=== PATIENT | male | born 1995 | race Caucasian/White ===

== ENCOUNTER 2020-07-14 15:03 | Outpatient (CLI) | payer BC, SELFPAY ==
--- NOTE | ~2020-07-14 | US_ITS ---
EXAMINATION: US soft tissue head and neck DATE: 07/14/2020 15:40 INDICATION: Enlarged neck lymph nodes, unspecified. TECHNIQUE: Multiple grayscale and Doppler ultrasound images of the neck were obtained. COMPARISON: None FINDINGS: There are normal bilateral submandibular lymph nodes in the patient's areas of concern. IMPRESSION: 1. No abnormal mass or lymphadenopathy in the patient's areas of concern. Reviewed, dictated and finalized at location A. ER TENDER
== END 2020-07-14 15:04 | disposition home or self-care (01) ==
PROVIDERS: PCP Internal Medicine; Visit Provider Nurse Practitioner
DX: R59.9 Enlarged lymph nodes, unspecified (principal)
CPT/HCPCS: 76536

== ENCOUNTER → 2021-04-18 01:21 | Outpatient (CLI) | payer BC, SELFPAY ==
[2021-04-18 12:26] LABS: Influenza Control Positive
[2021-04-18 20:10] LABS: SARS-CoV-2 RNA PCR Negative
== END ==
PROVIDERS: PCP Internal Medicine; Visit Provider Internal Medicine
DX: R68.89 Other general symptoms and signs (principal); Z20.822 Contact with and (suspected) exposure to COVID-19
CPT/HCPCS: 87804; C9803; U0003; U0005

== ENCOUNTER 2022-07-29 03:02 | Emergency (ER) | payer BC, SELFPAY ==
--- NOTE | ~2022-07-29 | XR_ITS ---
Clinical Indication: Pain PA and lateral views of the chest: Comparison: None Findings: The lungs are clear, without evidence of focal consolidation or pleural effusion. Cardiome diastinal silhouette is within normal limits. Bones and soft tissues are unremarkable. Impression: Normal chest. Reviewed, dictated and finalized at location . Impression: Normal chest.
[2022-07-29 03:09] VITALS: BP 177/105; PULSE 90; RESP 18; TEMP 36.6; O2SAT 100
--- NOTE | 2022-07-29 03:24 | ED.ABDPAIN ---
HPI - Abdominal Pain General Chief Complaint: Abdominal Pain Stated Complaint: epigastric pain started last night Time Seen by Provider: 07/29/22 03:13 History of Present Illness HPI narrative: This is a 26-year-old male, who denies significant past medical history, presenting to the emergency department complaining of epigastric abdominal pain beginning approximately 5 and half hours ago. The patient states he ate chicken strips and few hours later noticed sharp and burning epigastric pain. The pain does not radiate, it is rated 6/10. He denies nausea, vomiting, diarrhea or bleeding from any source. Related Data Home Medications Medication Instructions Recorded Confirmed albuterol sulfate 90 mcg/actuation 1 puff inhalation Q4H PRN 04/25/19 07/21/20 aerosol inhaler (ProAir HFA) Allergies Allergy/AdvReac Type Severity Reaction Status Date / Time cefaclor Allergy Mild Rash Verified 07/21/20 14:38 Review of Systems Review of Systems: CONSTITUTIONAL: Denies fever, chills, or sweats. EYES: Denies visual changes, redness, or discharge. ENT: Denies rhinorrhea, congestion, sore throat, or otalgia. CARDIOVASCULAR: Denies chest pain, palpitations, or edema. RESPIRATORY: Denies cough or dyspnea. GASTROINTESTINAL: Epigastric abdominal pain and burning denies nausea, vomiting, or diarrhea. GENITOURINARY: Denies dysuria or hematuria. SKIN: Denies rash or itching. MUSCULOSKELETAL: Denies back pain, joint pain, or myalgia. NEUROLOGIC: Denies headache, numbness, dizziness, or weakness. PSYCHIATRIC: Denies anxiety or depression. PMFSH Family History Family History Father Hypertension Family history of elevated blood lipids Family history of diabetes mellitus in first degree relative Grandparent Cerebrovascular accident Family history of malignant neoplasm of brain Social History Social History Smoking status: Current every day smoker Alcohol intake: former Substance use: former Substance use type: marijuana and crack/cocaine Living arrangements: with family Exam Narrative: GENERAL: Well-appearing, well-nourished, appears uncomfortable HEAD: Normocephalic, atraumatic. EYES: PERRLA and EOMI. CHEST: Clear to auscultation. No respiratory distress. No wheezes rales or rhonchi HEART: Regular rate and rhythm. No murmur heard. Normal peripheral pulses. ABDOMEN: Soft, mild epigastric tenderness to palpation without rebound or mass, nondistended, normal active bowel sounds. EXTREMITIES: Normal range of motion. No edema. SKIN: Warm, dry, no rash. NEURO: No focal deficits. Alert and oriented x3. PSYCH: Normal mood and affect. Course Course Emergency Course: 03:54 - On reevaluation, the patient states his pain is significantly improved. CBC unremarkable. Chest x-ray not concerning for air under the diaphragm or other cardiopulmonary abnormality. 04:03 - Chemistries unremarkable. Lipase 59. Will discharge with famotidine. Discussed findings with the patient. Discussed return and emergency precautions including signs/symptoms of acute abdomen and intractable vomiting. The patient voiced understanding and is comfortable with plan. All questions answered to his satisfaction Vital Signs Vital signs: Vital Signs Temperature 97.9 F 07/29/22 03:09 Pulse Rate 90 07/29/22 03:09 Respiratory Rate 18 07/29/22 03:09 Blood Pressure 177/105 H 07/29/22 03:09 Pulse Oximetry 100 07/29/22 03:09 Oxygen Delivery Room Air 07/29/22 03:09 Temperature 97.9 F 07/29/22 03:09 Pulse Rate 90 07/29/22 03:09 Respiratory Rate 18 07/29/22 03:09 Blood Pressure 177/105 H 07/29/22 03:09 Pulse Oximetry 100 07/29/22 03:09 Oxygen Delivery Room Air 07/29/22 03:09 MDM - Abdominal Pain MDM Narrative Medical decision making narrative: Plan: Pain control, imaging, labs, reassess Differential
[2022-07-29] MEDS: FAMOTIDINE 20 MG TABLET 40 MG PO (03:34)
[2022-07-29] MEDS: BELLADONNA ALK/PHENOB ELIX 10 ML, MAG HYDROX/ALUMINUM HYD/SIMETH 30 ML, LIDOCAINE HCL 2... PO (03:36)
[2022-07-29 03:41] LABS: Basophils Percent Auto 0.4 % (0.2-1.2); Eosinophils Absolute Auto 0.5 K/mm3 (0-0.3); Eosinophils Percent Auto 5.5 % (0-4.4); Hematocrit 44.6 % (42.0-52.0); Hemoglobin 14.9 g/dL (14.0-18.0); Immature Granulocyte Absolute 0.03 K/mm3 (0.00-0.031); Immature Granulocyte Percent A 0.3 % (0-0.5); Mean Corpuscular HGB Conc 33.4 g/dl (32-36); Mean Corpuscular Hemoglobin 30.8 pg (26-34); Mean Corpuscular Volume 92.1 fl (80-100); Monocytes Absolute Auto 0.7 K/mm3 (0.1-0.6); Monocytes Percent Auto 7.3 % (2.6-8.5); Neutrophils Absolute Auto 5.3 K/mm3 (1.3-6.7); Neutrophils Percent Auto 54.5 % (45.5-73.1); Platelet Count Result 320 k/mm3 (150-375); Red Blood Count 4.84 M/mm3 (4.6-6.20); Red Cell Distribution Width 12.8 % (11.5-14.5); White Blood Count 9.7 K/mm3 (4.5-10.0)
[2022-07-29 04:00] LABS: Alanine Aminotransferase 62 U/L (6-50); Albumin Level 4.5 g/dL (3.5-5.1); Alkaline Phosphatase 151 U/L (38-126); Anion Gap 9 mmol/L (8-16); Aspartate Amino Transferase 33 U/L (17-59); Bilirubin,Total 0.4 mg/dL (0.2-1.3); Blood Urea Nitrogen 10 mg/dL (9-20); Calcium 8.9 mg/dL (8.4-10.2); Carbon Dioxide 25 mmol/L (22-30); Chloride 105 mmol/L (98-107); Estimated CRCL calculation 161 ml/min; Estimated Glomerular Filt Rate > 60; Glucose 99 mg/dL (65-110); Lipase 59 U/L (23-300); Sodium 139 mmol/L (137-145)
[2022-07-29 04:12] VITALS: BP 111/69; PULSE 84; RESP 18; TEMP 36.6; O2SAT 99
== END 2022-07-29 04:12 | disposition home or self-care (01) ==
PROVIDERS: Emergency Provider Preventive Medicine Aerospace Medicine; PCP Family Medicine
DX: R10.13 Epigastric pain (principal); F17.210 Nicotine dependence, cigarettes, uncomplicated
CPT/HCPCS: 36415; 71046; 80053; 83690; 85025; 99283; A9270

== ENCOUNTER 2024-05-04 08:05 | Outpatient (CLI) | payer BC, SELFPAY ==
--- NOTE | ~2024-05-04 | XR_ITS ---
EXAMINATION: XR barium swallow DATE: 05/04/2024 08:33 INDICATION: Dysphagia, unspecified. TECHNIQUE: The patient drank thick barium, gas-producing crystals, and thin barium. Fluoroscopy of th e hypopharynx and esophagus was performed. Fluoroscopy exposure time was 0.3 minutes. The total numbe r of images was 255. The dose-area product was 0.487 Gy-cm^2. COMPARISON: None. FINDINGS: There is no mass or stricture of the esophagus. Esophageal motility is normal. There is no hiatal hernia. There was no gastroesophageal reflux with provocative maneuvers. IMPRESSION: 1. Normal esophagram. Reviewed, dictated and finalized at location A. ER SETTER ELECTRON BEAM MACHINE IMPRESSION: 1. Normal esophagram.
== END 2024-05-04 08:06 | disposition home or self-care (01) ==
PROVIDERS: PCP Internal Medicine; Visit Provider Nurse Practitioner
DX: R13.10 Dysphagia, unspecified (principal)
CPT/HCPCS: 74220

== ENCOUNTER 2024-07-12 00:36 | Day surgery (SDC) | payer BC, SELFPAY ==
[2024-06-11 14:21] VITALS: BMI 21.8
--- OUTSIDE RECORDS SUMMARY | 2024-07-12 00:38 | XMS_ITS | Patient Health Summary ---
Author Organization [facility] Address [address] [place] [address] Care Team Providers Care Castings Trimmer Name Role Phone Unavailable Primary Care Provider Unavailabl e Note from [facility],non-owned Affiliates and Associated Physician Practices is amultiple site organization consisting of ambulatory clinics and hospital sitesin [place], [place], [place] and [place]. This disclosure is being madepursuant to the Care Everywhere program and may not contain all information available regarding this patient. Last updated 18.[facility] Allergies * Cefaclor Medications Be aware that medications may not be up to date on this document. Always verify current medications with the patient. No known medications Active Problems No known active problems Social History Tobacco Use Types Packs/Day Years Used Date Smoking Tobacco: Never Alcohol Use Standard Drinks/Week Comments No 0 (1 standard drink = 0.6 oz pur e alcohol) Sex and Gender Information Value Date Recorded Sex Assigned at Not on file Gender Identity Not on file Sexual Orientation Not on file Last Filed Vital Signs Vital Sign Reading Time Taken Comments Blood Pressure 152/100 05/26/2010 1:45 AM BRIDGE REPAIRER Pulse 88 05/26/2010 1:54 AM BRIDGE REPAIRER Temperature 36 C (96.8 F) 05/25/2010 11:36 PM BRIDGE REPAIRER Respiratory Rate 24 05/26/2010 1:54 AM BRIDGE REPAIRER Oxygen Saturation 97% 05/26/2010 1:54 AM BRIDGE REPAIRER Inhaled Oxygen Concentration - - Weight 68 kg (150 lb) 05/25/2010 11:36 PM BRIDGE REPAIRER Height - - Body Mass Index - - Procedures * IMAGING/RADIOLOGY/XRAY RESULTS ORDER(Performed 03/18/2011) * IMAGING/RADIOLOGY/XRAY RESULTS ORDER(Performed 08/04/2010) * IMAGING/RADIOLOGY/XRAY RESULTS ORDER(Performed 07/13/2010) * IMAGING/RADIOLOGY/XRAY RESULTS ORDER(Performed 06/08/2010) * XR FOREARM LEFT 2VW OR MORE(Performed 05/26/2010) Performed for Injury, other and unspecified, elbow, forearm, and wrist Results * IMAGING/RADIOLOGY/XRAY RESULTS ORDER (03/18/2011 6:30 AM BRIDGE REPAIRER) Only the most recent of4 resultswithin the time period is included. Anatomical Region Laterality Modality Other Narrative 07/13/2010 6:08 AM BRIDGE REPAIRER A scan was deleted from the Results section by S Interface [[id number]] on 03/18/2011 at 6:30 AM (File: [id number]) Transcriptions Document, Scanned - 07/10/2010 2:46 PM BRIDGE REPAIRER Document, Scanned - 07/15/2010 6:25 PM BRIDGE REPAIRER Document, Scanned - 03/18/2011 6:30 AM CST Scanned Document IMAGING * XR FOREARM 2 VW LEFT (05/26/2010 1:30 AM BRIDGE REPAIRER) Anatomical Region Laterality Modality Upper Extremity Radiographic Kindra ging 05/26/2010 8:59 AM BRIDGE REPAIRER Impressions 05/26/2010 3:06 PM BRIDGE REPAIRER Distal radial diaphyseal fracture, splinted. Questionable ulnar styloid fracture. Correlate with precasting films for confirmation. D: Mehnaz Pinto MD Narrative 05/26/2010 3:06 PM BRIDGE REPAIRER Exam: Forearm, 2 views Findings: The overlying splint obscures bony details. A minimally displaced distal radial diaphyseal fracture is seen. There is possibly an ulnar styloid fracture. The joint spaces are preserved. No soft tissue abnormalities are identified. Procedure Note Barbi Tipton MD - 05/26/2010 Exam: Forearm, 2 views Findings: The overlying splint obscures bony details. A minimally displaced distal radial diaphyseal fracture is seen. There is possibly an ulnar styloid fracture. The joint spaces are preserved. No soft tissue abnormalities are identified. IMPRESSION Distal radial diaphyseal fracture, splinted. Questionable ulnar styloid fracture. Correlate with precasting films for confirmation. D: Mehnaz Pinto MD Lauren Melvin DO DIAGNOSTIC IMAGING O [facility]
--- OUTSIDE RECORDS SUMMARY | 2024-07-12 00:38 | XMS_ITS | Clinical Summary ---
Author Organization [email or web address] Address [address] [place] [address] Care Team Providers Care Pile Driver Operator Barge Mounted Name Role Phone Unavailable Primary Care Provider Unavailabl e Source Comments [facility],non-owned Affiliates and Associated Physician Practices is amultiple site organization consisting of ambulatory clinics and hospital sitesin [place], [place], [place] and [place]. This disclosure is being madepursuant to the Care Everywhere program and may not contain all information available regarding this patient. Last updated 18.[email or web address] Allergies Active Allergy Reactions Criticality Noted Date Comments Cefaclor 05/25/2010 Medications Be aware that medications may not [...] Comments Blood Pressure 152/100 05/26/2010 1:45 AM STEEPING PRESS TENDER Pulse 88 05/26/2010 1:54 AM STEEPING PRESS TENDER Temperature 36 C (96.8 F) 05/25/2010 11:36 PM STEEPING PRESS TENDER Respiratory Rate 24 05/26/2010 1:54 AM STEEPING PRESS TENDER Oxygen Saturation 97% 05/26/2010 1:54 AM STEEPING PRESS TENDER Inhaled Oxygen Concentration - - Weight 68 kg (150 lb) 05/25/2010 11:36 PM STEEPING PRESS TENDER Height - - Body Mass Index - - Plan of Treatment Health Maintenance Due Date Last Done Comments HIV SCREENING 2008 HEPATITIS C SCREENING 12/25/2011 DTAP/TDAP/TD VACCINES (1 - Tdap) 2012 HEPATITIS B VACCINE (1 of 3 - 19+ 3-dose series) 2012 COVID-19 VACCINE (2023-2 5 season) 2024 INFLUENZA VACCINE (#1) 2024 DEPRESSION SCREENING 05/09/2024 ZOSTER VACCINE (1 of 2) 12/30/2043 HIB VACCINE Aged Out No longer eligi ble based on patient's age to complete this topic HPV VACCINE Aged Out No longer eligi ble based on patient's age to complete this topic MENINGOCOCCAL (Group B) VACCINE Aged Out No longer eligible based on patient's age to complete this topic MENINGOCOCCAL VACCINE Aged Out No jose babar eligible based on patient's age to complete this topic PNEUMOCOCCAL VACCINE Aged Out No long er eligible based on patient's age to complete this topic
--- OUTSIDE RECORDS SUMMARY | 2024-07-12 00:38 | XMS_ITS | Referral Summary ---
Author Organization [facility] Address [address] [place] [address] Care Team Providers Care Cap Maker Name Role Phone Unavailable Primary Care Provider Unavailabl e Source Comments [facility],non-owned Affiliates and Associated Physician Practices is amultiple site organization consisting of ambulatory clinics and hospital sitesin [place], [place], [place] and [place]. This disclosure is being madepursuant to the Care Everywhere program and may not contain all information available regarding this patient. Last updated 18.[facility] Allergies Active Allergy Reactions Criticality Noted Date [...] Comments Blood Pressure 152/100 05/26/2010 1:45 AM IT BUSINESS SYSTEMS ANALYST Pulse 88 05/26/2010 1:54 AM IT BUSINESS SYSTEMS ANALYST Temperature 36 C (96.8 F) 05/25/2010 11:36 PM IT BUSINESS SYSTEMS ANALYST Respiratory Rate 24 05/26/2010 1:54 AM IT BUSINESS SYSTEMS ANALYST Oxygen Saturation 97% 05/26/2010 1:54 AM IT BUSINESS SYSTEMS ANALYST Inhaled Oxygen Concentration - - Weight 68 kg (150 lb) 05/25/2010 11:36 PM IT BUSINESS SYSTEMS ANALYST Height - - Body Mass Index - - Plan of Treatment Not on file
[2024-07-12 09:00] VITALS: BP 161/76; PULSE 101; RESP 16; TEMP 36.4; BMI 20.5
[2024-07-12] MEDS: LACTATED RINGERS 1,000 ML 150 ML IV CONT (09:08)
--- NOTE | 2024-07-12 09:20 | P.PNAN_ITS ---
Anes - Initial Pre Proc Eval Procedure: Operation Date: 07/12/24 12:00 Proposed Procedures p Esophagogastroduodenoscopy - Eduardo Leo MD Date/Time: 07/12/24 09:20 Surgeon: Eduardo Leo MD Pre Op Diagnosis: Dyshagia,foreign body sensation Patient Data Age: 28 Gender: M Height: 1.78 m Weight: 64.9 kg Last Vital Signs Temp 36.4 C 07/12/24 09:00 Pulse 101 H 07/12/24 09:00 Resp 16 07/12/24 09:00 BP 161/76 H 07/12/24 09:00 Allergies Allergy/AdvReac Type Severity Reaction Status Date / Time cefaclor Allergy Mild Rash Verified 07/12/24 08:58 Home Medications ?Medication ?Instructions ?Recorded ?Confirmed ?Type omeprazole 40 mg capsule,delayed 40 mg PO DAILY #30 caps 04/27/24 07/12/24 Rx release amlodipine 5 mg tablet (Norvasc) 5 mg PO DAILY #30 tabs 07/05/24 07/12/24 Rx varenicline tartrate 0.5 mg (11)-1 See Rx Instructions PO PER PKG DIR 07/05/24 07/12/24 Rx mg (42) tablets in a dose pack #53 ea (Chantix Starting Month Box) Patient hx anesthesia problems: none Family hx anesthesia problems: none Results Review: All pre-operative results and documents have been reviewed as part of the pre- operative evaluation. [facility] Past Medical History Medical History Depression Essential (primary) hypertension Hyperlipidemia, unspecified Mild intermittent asthma without complication Family History Family History Father Hypertension Family history of elevated blood lipids Family history of diabetes mellitus in first degree relative Grandparent Cerebrovascular accident Family history of malignant neoplasm of brain Social History Social History Smoking packs per day: 0.5 Smoking cigarettes per day: 10.0 Years smoked: 10 Smoking pack-years: 5.00 Smoking status: Current every day smoker Tobacco type: cigarettes Alcohol intake: former Substance use: former Substance use type: marijuana and crack/cocaine Other substance usage details: Monthly marijuana use Living arrangements: with family Spiritual care concerns: No Anes - Eval Final PreProcedure Day of Procedure 07/12/24 09:20 Patient weight: normal Heart: regular rate and rhythm Lungs: clear to auscultation Airway: Mallampati scale class II Neurological: alert and oriented Last oral intake: >/= 8 hours ASA classification: II Emergent: no Anesthetic plan: proceed Anesthesia type and monitoring: general GIVS and standard monitoring Results Review: All pre-operative results and documents have been reviewed as part of the pre- operative evaluation. Informed Consent: The patient's anesthetic plan and its attendant risks and benefits were discussed with the patient/family/POA. Questions were solicited and answers provided to the satisfaction of the patient/family/POA.
--- NOTE | 2024-07-12 09:42 | PM.HPGS ---
History of Present Illness History of Present Illness Consent: Risks, benefits, and alternatives have been discussed and questions answered. Patient agrees to proceed with procedure. Chief complaint: Dyshagia,foreign body sensation Narrative: Sheldon Adams is a 28 year old male with globus sensation after smoking/vaping, also upset stomach in the mornings Review of Systems Review of Systems: All systems reviewed & are unremarkable except as noted in HPI and below PMFSH Past Medical History Medical History Depression Essential (primary) hypertension Hyperlipidemia, unspecified Mild intermittent asthma without complication Family History Family History Father Hypertension Family history of elevated blood lipids Family history of diabetes mellitus in first degree relative Grandparent Cerebrovascular accident Family history of malignant neoplasm of brain Social History Social History Smoking packs per day: 0.5 Smoking cigarettes per day: 10.0 Years smoked: 10 Smoking pack-years: 5.00 Smoking status: Current every day smoker Tobacco type: cigarettes Alcohol intake: former Substance use: former Substance use type: marijuana and crack/cocaine Other substance usage details: Monthly marijuana use Living arrangements: with family Spiritual care concerns: No Meds Home Medications and Allergies Home Medications ?Medication ?Instructions ?Recorded ?Confirmed ?Type omeprazole 40 mg capsule,delayed 40 mg PO DAILY #30 caps 04/27/24 07/12/24 Rx release amlodipine 5 mg tablet (Norvasc) 5 mg PO DAILY #30 tabs 07/05/24 07/12/24 Rx varenicline tartrate 0.5 mg (11)-1 See Rx Instructions PO PER PKG DIR 07/05/24 07/12/24 Rx mg (42) tablets in a dose pack #53 ea (Chantix Starting Month Box) Allergies Allergy/AdvReac Type Severity Reaction Status Date / Time cefaclor Allergy Mild Rash Verified 07/12/24 08:58 Vital Signs Vital Signs - 24 hr 07/12/24 09:00 Temperature 97.6 F Pulse Rate 101 H Respiratory Rate 16 Blood Pressure 161/76 H Exam Const: General: comfortable and no acute distress HENMT: Face/Nose/Sinus: Normal nares present Eyes: General: appearance normal, both eyes and all related structures Neck: Neck: no JVD Resp: Auscultation: clear to auscultation bilaterally Cardio: Rate: regular rate Rhythm: regular rhythm GI: Inspection: non-distended GI Palp: Yes Soft to palpation Skin: General skin exam: normal color Neuro: General: gait normal Speech: normal speech Extrem: General: normal to inspection Psych: Mental Status: mental status grossly normal Assessment and Plan Assessment and plan (1) Globus sensation: Code(s): R09.A2 - Foreign body sensation, throat Status: Acute Assessment and Plan: egd with bx (2) Epigastric fullness: Code(s): R19.06 - Epigastric swelling, mass or lump Status: Acute
[2024-07-12 09:54] VITALS: BP 114/66; PULSE 77; RESP 20; O2SAT 100
[2024-07-12 10:06] VITALS: BP 126/80; PULSE 74; RESP 14; O2SAT 100
[2024-07-12 10:16] VITALS: BP 120/80; PULSE 70; RESP 19; O2SAT 100
== END 2024-07-12 10:18 | disposition home or self-care (01) ==
PROVIDERS: PCP Internal Medicine; Referring Provider Nurse Practitioner; Visit Provider Internal Medicine Gastroenterology
PROC: 0DJ08ZZ Inspection of Upper Intestinal Tract, Via Natural or Artificial Opening Endoscopic (ICD-10-PCS; CPT 43239; principal; 2024-07-12 12:00)
DX: K21.00 Gastro-esophageal reflux disease with esophagitis, without bleeding (principal); F17.210 Nicotine dependence, cigarettes, uncomplicated; F12.90 Cannabis use, unspecified, uncomplicated
CPT/HCPCS: 43239; 88305; J2704; J7120

== ENCOUNTER 2024-10-08 09:47 | Outpatient (CLI) | payer BC, SELFPAY ==
--- NOTE | ~2024-10-08 | US_ITS ---
EXAMINATION: US soft tissue head and neck DATE: 10/08/2024 10:03 INDICATION: Generalized enlarged right cervical lymph nodes TECHNIQUE: Multiple grayscale and Doppler ultrasound images of the region of concern at the right nec k were obtained. COMPARISON: Ultrasound dated 07/14/2020 FINDINGS: There are several normal sized lymph nodes in the right neck at the region of concern, the largest me asuring 2.8 x 1.8 x 0.7 cm. No other abnormal masses or fluid collections identified. IMPRESSION: 1. Normal sized lymph nodes at the region of concern. No abnormal masses or fluid collections identif ied. Reviewed, dictated and finalized at location A. IMPRESSION: 1. Normal sized lymph nodes at the region of concern. No abnormal masses or flu id collections identified.
== END 2024-10-08 09:48 | disposition home or self-care (01) ==
LOC: MICIMG 09:48
PROVIDERS: PCP Internal Medicine; Visit Provider Internal Medicine
DX: R59.1 Generalized enlarged lymph nodes (principal)
CPT/HCPCS: 76536

== ENCOUNTER 2024-10-31 12:45 | Outpatient (CLI) | payer BC, SELFPAY ==
--- NOTE | ~2024-10-31 | CT_ITS ---
EXAMINATION: CT soft tissue neck wo con DATE: 10/31/2024 12:57 INDICATION: Cervicalgia TECHNIQUE: Computed tomography (CT) of the neck was performed without intravenous contrast. Echodense Iraj The dose-length product was 369.08 mGy-cm. COMPARISON: None FINDINGS: Orbits are normal. Mild mucoperiosteal thickening the anterior ethmoid sinuses. Mastoid air cells and middle ear cavities are clear. Submandibular and parotid glands are symmetric. Thyroid gland is unre markable. There are scattered normal-sized lymph nodes in the neck, no lymphadenopathy. No masses id entified. Airway is unremarkable with normal epiglottis and prevertebral soft tissues. Superior media stinum is unremarkable. Lung apices are normal. Straightening of the normal cervical lordosis with m oderate spondylosis including mild disc height loss at C2-C3 and C4-C5 and moderate uncovertebral ost eoarthritis on the right at C2-C3 contributing to moderate neural from stenosis on the right at C2-C3 . Moderate facet osteoarthritis bilaterally at C7-T1 and a few levels in the thoracic spine and mild facet osteoarthritis in the more cephalad cervical spine. IMPRESSION: 1. Mild cervical spondylosis. Otherwise unremarkable study. Reviewed, dictated and finalized at location A.
== END 2024-10-31 12:46 | disposition home or self-care (01) ==
LOC: MICIMG 12:46
PROVIDERS: PCP Internal Medicine; Visit Provider Internal Medicine
DX: M47.892 Other spondylosis, cervical region (principal)
CPT/HCPCS: 70490

== ENCOUNTER 2024-12-18 14:45 | Outpatient (RCR) | payer BC, SELFPAY ==
--- NOTE | 2024-12-03 15:37 | OPREHPOC ---
Outpatient Therapy Plan of Care This is a Multidisciplinary Plan of Care that may contain components documented by all disciplines (PT, OT, and ST.) PT Problem 1 PT Problem #1 Knowledge Deficit PT Goal 1 Goal / Goal Update 1* independent with HEP 2* pt demonstrate correct body mechanics with lifting from floor Target Visit 8 PT Problem 2 PT Problem #2 Pain PT Goal 1 Goal / Goal Update 1* pt report pain at worst rating of 2/10 2* pt report times of no pain Target Visit 8 PT Problem 3 PT Problem #3 Impaired Strength PT Goal 1 Goal / Goal Update increase cervical- thoracic-scapular strength: 1* pt maintain correct posture of neck and shoulders during PT session and with exercises 2* gross strength of 4+/5 Target Visit 8
--- NOTE | 2024-12-03 15:37 | PTOPEVAL1 ---
Assessment and note entered by Coleen Hilliard, PT Evaluation Information Assessment Status Evaluation ICD-10 Condition Codes (PT) Cervicalgia M54.2 Onset Dec 2023 Subjective Information gradual increase in pain since last December, no injury or trauma to neck--persistent, constant pulling on R side of neck; feel like problems swallowing; able to do everything for work and home, but hurts neck; R hand dominant; cervical CT scan: decreased disc height C 2-3 & C 4-5; moderate stenosis and OF C 2-3 and C 7-T1; Activity: work as [employer]; Reported Pain Level Pain Score Self Report Additional Pain Score Comments pain range in the past week: 1-5/10 R side of neck, constant pain; pec and top of R shoulder increase pain: move neck decrease pain: sit, rest, heat, ice, sleeping is OK Assessment PT Clinical Summary Sheldon has the diagnosis of cervicalgia. He did not have any injury. Self assessment with Neck Index rating of 14% limitation in activity level. 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 CT scan is positive for bony changes of cervical spine. With the evaluation: cervical and bilateral shoulder ROM is WNL and not increase pain; tenderness with palpation over R lateral and anterior neck/ sternocleidomastoid and pec areas; rounded posture of shoulders with forward head. He voiced concern about having lymph nodes swollen, problems swallowing. Skilled PT services are indicated for modalities to decrease pain and spasms, therapeutic exercises to increase thoracic/scapular strength for improved position of neck and shoulder, with education for HEP and posture/body mechanics. Plan of Care Interventions Electrical Stimulation,Hot Pack/Cold Pack,Manual Therapy,Mechanical Traction,Neuro Re-education, Patient/Caregiver Education,Therapeutic Activities ,Therapeutic Exercise,Ultrasound,Other Other Interventions taping PT Services Indicated Yes Treatment Frequency and 1-2x/wk for 8 visits Duration These treatments will address the objective and functional deficits as defined above. The patient will be advanced safely and appropriately in order for the patient to progress towards his/her prior level of function. Additional exercises will be introduced and as well as a comprehensive home exercise program upon discharge, if needed, ?to ensure carryover of functional gains achieved in the clinic. This treatment plan has been reviewed and agreement upon by the patient.
--- NOTE | 2024-12-05 08:11 | PCPTNOTE ---
pt called to cancel today's appt, got called into work
--- NOTE | 2024-12-21 12:19 | PCPTNOTE ---
Cancelled per front office. ALISON
--- NOTE | 2025-01-04 09:55 | PCPTNOTE ---
pt did not show for today's treatment session. Called and left voice mail reminder, next appt is reeval appt.
--- NOTE | 2025-01-08 16:19 | PCPTNOTE ---
pt called and canceled today's reeval appt.
--- NOTE | 2025-03-21 15:32 | PCPTNOTE ---
PHYSICAL THERAPY DISCHARGE 03-21-[address] Alyssa Cuhng received the PT evaluation on December 03 and 2 treatment sessions. He called and canceled 2 and did not show for 1 appointment. Discharge PT services due to not attending.
== END 2025-03-03 23:59 | disposition home or self-care (01) ==
LOC: ANHPT 14:45
PROVIDERS: PCP Internal Medicine; Visit Provider Internal Medicine
DX: M54.2 Cervicalgia (principal)
CPT/HCPCS: 97110; 97140; 97161; 97530